=== PATIENT | male | born 1985 | race Caucasian/White ===

== ENCOUNTER 2021-10-13 17:55 | Emergency (ER) | payer OTHER, SELFPAY ==
--- NOTE | ~2021-10-13 | XR_ITS ---
XR ankle RT min 3V DATE: 10/13/2021 18:29 INDICATION: Twisted ankle at work today. Swelling. TECHNIQUE: 4 views COMPARISON: None FINDINGS: There is posterior calcaneal enthesopathy. There is mild lateral soft tissue swelling. No fracture or dislocation of the ankle or ankle mortise . IMPRESSION: Mild lateral soft tissue swelling Posterior calcaneal enthesopathy Reviewed, dictated and finalized at location A.
--- NOTE | ~2021-10-13 | XR_ITS ---
XR foot RT min 3V DATE: 10/13/2021 19:16 INDICATION: Tenderness over cuboid TECHNIQUE: 4 views COMPARISON: None FINDINGS: There is mild osteoarthritis at the first metatarsophalangeal joint. Posterior calcaneal enthesopathy. No fracture or dislocation, periosteal reaction or bone destruction. No abnormality of the cuboid bone is detected. IMPRESSION: Posterior calcaneal enthesopathy Mild osteoarthritis at first metatarsophalangeal joint Reviewed, dictated and finalized at location A.
[2021-10-13 18:05] VITALS: BP 150/92; PULSE 86; RESP 16; TEMP 37.1; O2SAT 98
--- NOTE | 2021-10-13 18:56 | ED.LOWEXIN ---
HPI - Extremity Injury (Lower) General Chief Complaint: Extremity Injury, Lower Stated Complaint: ankle injury Time Seen by Provider: 10/13/21 18:27 History of Present Illness HPI Narrative: 36-year-old previously healthy male here for evaluation of right lateral ankle pain for the past 3 hours. Patient states he was stepping off of a metal pallet that was about 3 inches of the ground when his foot got caught, and he forcefully stepped with his foot in inversion. States that he felt a pop , and the pain has developed gradually ever since. He has been walking on the foot with some pain. Denies any calf pain, paresthesias in his foot, falls, head injury. States that he has some chronic pain in his right posterior foot near the calcaneus, but this is always better after massage. Related Data Allergies Allergy/AdvReac Type Severity Reaction Status Date / Time sulfamethoxazole Allergy Unknown DOES NOT Verified 11/14/17 10:41 KNOW WAS SMALL CHILD trimethoprim Allergy Unknown DOES NOT Verified 11/14/17 10:41 KNOW WAS SMALL CHILD Review of Systems Review of Systems: Gen: Denies fevers or chills Eyes: Denies eye pain or visual change ENT: Denies congestion Respiratory: Denies shortness of breath or cough CV: Denies chest pain or palpitations GI: Denies abdominal pain nausea, emesis or diarrhea denies burning, urgency, frequency or hematuria Musculoskeletal: Reports right foot pain. Denies back pain or muscle pain Neuro: Denies numbness, tingling, weakness or focal weakness Skin: Denies rash Except as documented, all other systems reviewed and negative All systems reviewed & are unremarkable except as noted in HPI and below Exam Narrative: Gen: Alert, oriented male in no acute distress. Eyes: EOMI, no icterus Pulm: Respirations even and unlabored, symmetric thorax expansion, no audible stridor or visible cyanosis CV: Regular rate per telemetry GI: No distension, no voluntary/involuntary guarding Neuro: AOx4, moves all extremities without apparent difficulty or weakness, follows commands MSK: Right foot with some moderate swelling over lateral malleolus. Tender to palpation over cuboid bone. Full range of motion in foot with some pain with inversion. No ligamentous laxity noted. 2+ distal pulses. Brisk capillary refill. Sensation intact across entire foot. No bony tenderness along calcaneus, tibia or fibula. Normal Eckert test. Skin: No jaundice, no visible bruising, rashes, lesions or wounds on exposed skin Psych: Normal mood/affect, insight/judgement good, adequate fund of knowledge, recent/remote memory intact Course Vital Signs Vital signs: Vital Signs Temperature 98.8 F 10/13/21 18:05 Pulse Rate 86 10/13/21 18:05 Respiratory Rate 16 10/13/21 18:05 Blood Pressure 150/92 H 10/13/21 18:05 Pulse Oximetry 98 10/13/21 18:05 Temperature 98.3 F 10/13/21 19:37 Pulse Rate 74 10/13/21 19:37 Respiratory Rate 16 10/13/21 19:37 Blood Pressure 148/60 H 10/13/21 19:37 Pulse Oximetry 100 10/13/21 19:37 MDM - Extremity Injury (Lower) MDM Narrative Medical decision making narrative: 36-year-old male here for evaluation of right foot and ankle pain after landing in inversion. No ligamentous laxity noted on exam, neurovascularly intact distally. X-ray without fracture, but with evidence of Achilles tendon enthesopathy. Patient states he has had some pain in his right calcaneus for a while , this likely is not an acute finding from his injury today. Regardless, I provided him with an orthopedic follow-up if his pain persists. Discussed return precautions. Discharge Plan Discharge Clinical Impression: Ankle sprain and strain Patient Disposition: Home, Self-Care Condition: Stable Instructions: Antibiotic Form Additional Instructions: Please follow-up with your orthopedist if your pain persists past 1 week. Your x-rays did not show evidence of a fracture today, but
[2021-10-13] MEDS: ACETAMINOPHEN 325 MG TABLET 650 MG PO (18:59)
[2021-10-13] MEDS: IBUPROFEN 400 MG TABLET 800 MG PO (19:01)
[2021-10-13 19:37] VITALS: BP 148/60; PULSE 74; RESP 16; TEMP 36.8; O2SAT 100
== END 2021-10-13 19:45 | disposition home or self-care (01) ==
PROVIDERS: Emergency Provider Emergency Medicine
DX: S93.401A Sprain of unspecified ligament of right ankle, initial encounter (principal); S96.911A Strain of unspecified muscle and tendon at ankle and foot level, right foot, initial encounter; X50.9XXA Other and unspecified overexertion or strenuous movements or postures, initial encounter
CPT/HCPCS: 73610; 73630; 99283; A9270

== ENCOUNTER 2024-04-16 09:18 | Outpatient (CLI) | payer OTHER, SELFPAY ==
[2024-04-16 19:01] LABS: Basophils Percent Auto 0.6 % (0.2-1.2); Eosinophils Absolute Auto 0.1 K/mm3 (0-0.3); Eosinophils Percent Auto 1.9 % (0-4.4); Hematocrit 50.2 % (42.0-52.0); Hemoglobin 17.5 g/dL (14.0-18.0); Immature Granulocyte Absolute 0.02 K/mm3 (0.00-0.031); Immature Granulocyte Percent A 0.3 % (0-0.5); Lymphocytes Absolute Auto 2.13 K/mm3 (0.9-3.2); Lymphocytes Percent Auto 33.9 % (18.3-44.2); Mean Corpuscular HGB Conc 34.9 g/dl (32-36); Mean Corpuscular Hemoglobin 31.8 pg (26-34); Mean Corpuscular Volume 91.1 fl (80-100); Mean Platelet Volume 10.5 fl (7.4-10.4); Monocytes Absolute Auto 0.6 K/mm3 (0.1-0.6); Monocytes Percent Auto 9.7 % (2.6-8.5); Neutrophils Absolute Auto 3.4 K/mm3 (1.3-6.7); Neutrophils Percent Auto 53.6 % (45.5-73.1); Platelet Count Result 210 k/mm3 (150-375); Red Blood Count 5.51 M/mm3 (4.6-6.20); Red Cell Distribution Width 11.7 % (11.5-14.5); White Blood Count 6.3 K/mm3 (4.5-10.0)
[2024-04-16 19:23] LABS: Alanine Aminotransferase 64 U/L (6-50); Albumin Level 4.4 g/dL (3.5-5.1); Alkaline Phosphatase 59 U/L (38-126); Anion Gap 7 mmol/L (4-12); Aspartate Amino Transferase 34 U/L (17-59); Bilirubin,Total 1.1 mg/dL (0.2-1.3); Blood Urea Nitrogen 14 mg/dL (9-20); Calcium 9.3 mg/dL (8.4-10.2); Carbon Dioxide 30 mmol/L (22-30); Chloride 100 mmol/L (98-107); Cholesterol 186 mg/dL (0-200); Estimated Glomerular Filt Rate > 60; Glucose 97 mg/dL (65-110); HDL Direct 34 mg/dL; Potassium 4.5 mmol/L (3.4-5.0); Sodium 137 mmol/L (137-145); Triglycerides 79 mg/dL (<150)
[2024-04-16 19:34] LABS: LDL Cholesterol Direct 125 mg/dL
[2024-04-16 19:40] LABS: Hemoglobin A1C 5.7 % (<5.7)
[2024-04-16 19:53] LABS: Prostate Specific Antigen 0.8 ng/mL (< OR = 4.0)
== END 2024-04-16 09:19 | disposition home or self-care (01) ==
LOC: ANHGOSHLAB 09:20
PROVIDERS: PCP Clinical Nurse Specialist; Visit Provider Clinical Nurse Specialist
DX: R03.0 Elevated blood-pressure reading, without diagnosis of hypertension (principal); F41.9 Anxiety disorder, unspecified; Z80.42 Family history of malignant neoplasm of prostate; Z13.228 Encounter for screening for other metabolic disorders; Z13.220 Encounter for screening for lipoid disorders
CPT/HCPCS: 36415; 80053; 80061; 83036; 84153; 84443; 85025

== ENCOUNTER 2024-12-28 11:08 | Outpatient (CLI) | payer OTHER, SELFPAY ==
--- OUTSIDE RECORDS SUMMARY | 2024-12-28 11:42 | XMS_ITS | Continuity of Care Document ---
Author Organization [facility] Address [address] [place] [address] Phone Care Team Providers [facility] Demonstrator Name Role Phone Roscoe Mckeon DO Unavailable Unavailable Advance Directives Directive Yes / No Effective Date File Name No Information Encounters Encounter Description Practice Location Reason(s) For Visit Diagnoses Date Provider Providers [facility] [address], [place], [place], [id number], [place] tel:[phone] [facility] No Information Linda Deleon. [address] [place], [address], [place]. tel: [phone] Family History Family Member Type Diagnosis Age At Onset No Information Payers Payer name Insurance type Covered alliance party ID Authoriza tion(s) [facility] WC [id number] Social History Type Description Quantity Date Captured Comments Sex Male Smoking Status No Information Chief Complaint And Reason For Visit No Information Reason For Referral Reason For Referral No Information History Of Present Illness Encounter Date Complaint History Of Prese nt Illness No Information Functional Status Date Functional Assessmen t No Information Instructions Date Instruction Additional Infor mation No Information Assessments Type Assessment Date No Information Patient Care Teams Name Effective Dates (start - stop) Status Members No Information
--- OUTSIDE RECORDS SUMMARY | 2024-12-28 11:42 | XMS_ITS | Clinical Summary ---
Author Organization [facility] [employer] Address [address] [place] [address] Care Team Providers Care Nurse Reviewer Name Role Phone Pcp, Jhonny Goins Primary Care Provider Unav ailable Source Comments [facility],non-owned Affiliates and Associated Physician Practices is amultiple site organization consisting of ambulatory clinics and hospital sitesin [place], [place], [place] and [place]. This disclosure is being madepursuant to the Care Everywhere program and may not contain all information available regarding this patient. Last updated 18.[facility] Allergies Active Allergy Reactions Criticality Noted Date Comments Sulfamethoxazole W-Trimethoprim Unknown 10/2016 Medications * Be aware that medications may not be up to date on this document. Alwaysverify current medications with the patient. nystatin-triamc inolone (MYCOLOG) 860056-0.1 UNIT/GM-% creamIndication s:Fungal infection of skin Apply to affected area 2 times daily 60 g 08/13/2018 Active Active Problems Problem Noted Date Diagnosed Date RICHELLE (generalized anxiety disorder) 03/05/2017 Depression 03/05/2017 Resolved Problems Problem Noted Date Diagnosed Date Resolved Date NEGATIVE PAST MEDICAL HISTOR Y - SEE PROBLEM LIST 03/05/2017 Family History Relation Name Status Comments Father Alive Mother Alive Social History Tobacco Use Types Packs/Day Years Used Date Smoking Tobacco: Every Day Cigarettes Smokeless Tobacco: Never Alcohol Use Standard Drinks/Week Comments Yes 10 (1 standard drink = 0.6 oz pu re alcohol) Sex and Gender Information Value Date Recorded Sex Assigned at Not on file Legal Sex Male 8:59 AM CDT Gender Identity Not on file Sexual Orientation Not on file 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 file Not on file Not on file Last Filed Vital Signs Vital Sign Reading Time Taken Comments Blood Pressure 130/88 04/01/2017 4:13 PM CDT Pulse 78 08/13/2018 5:33 PM [employer] Temperature - - Respiratory Rate 14 08/13/2018 5:33 PM [employer] Oxygen Saturation - - Inhaled Oxygen Concentration - - Weight 129.3 kg (285 lb) 08/13/2018 5:33 PM [employer] Height 185.4 cm (6' 1) 08/13/2018 5:33 PM [employer] Body Mass Index 37.6 08/13/2018 5:33 PM [employer] Plan of Treatment Health Maintenance Due Date Last Done Comments LIPID TESTING 1983 HIV SCREENING 1998 HEPATITIS C SCREENING 03/26/2001 DTAP/TDAP/TD VACCINES (1 - Tdap) 2002 HEPATITIS B VACCINE (1 of 3 - 19+ 3-dose series) 2002 COVID-19 VACCINE ( - 2023-2 5 season) 2024 DEPRESSION SCREENING 07/01/2024 INFLUENZA VACCINE (Season Ended) 2025 ZOSTER VACCINE (1 of 2) 2033 HIB VACCINE Aged Out No longer eligi ble based on patient's age to complete this topic HPV VACCINE Aged Out No longer eligi ble based on patient's age to complete this topic MENINGOCOCCAL (Group B) VACC INE SHARED DECISION-MAKING Aged Out No longer eligibl e based on patient's age to complete this topic MENINGOCOCCAL GROUPS A/C/Y/W VACCINE Aged Out No longer eligible b ased on patient's age to complete this topic PNEUMOCOCCAL VACCINE Aged Out No long er eligible based on patient's age to complete this topic Insurance [facility] Care Teams Nurse Reviewer Relationship Specialty Start Date End Date Jhonny Vera PCP - General 01/25/23
--- OUTSIDE RECORDS SUMMARY | 2024-12-28 11:42 | XMS_ITS | Clinical Summary ---
Author Organization [facility] Address [address] [place] [id number] Care Team Providers Care Multiple Resaw Operator Name Role Phone Unavailable Primary Care Provider Unavailabl e Social History Tobacco Use Types Packs/Day Years Used Date Smoking Tobacco: Never Assessed Sex and Gender Information Value Date Recorded Sex Assigned at Not on file Legal Sex Male 6:57 PM CDT Gender Identity Not on file Sexual Orientation Not on file Plan of Treatment Health Maintenance Due Date Last Done Comments Annual Physical 1986 Hepatitis C 2001 DTaP, Tdap and Td Vaccines ( 1 - Tdap) 2002 Hepatitis B Vaccines (1 of 3 - 19+ 3-dose series) 2002 COVID-19 Vaccine (2023-2 5 season) 2024 HPV Vaccines Aged Out No longer eligi ble based on patient's age to complete this topic Meningococcal B Vaccine Aged Out No l onger eligible based on patient's age to complete this topic Meningococcal Vaccine Aged Out No narendra stephanie eligible based on patient's age to complete this topic Pneumococcal Vaccine: Pediat rics (0 to 5 Years) and At-Risk Patients (6 to 49 Years) Aged Out No longer eligible b ased on patient's age to complete this topic RSV Immunizations Under 20 Months Aged Out No longer eligible based on patient's age to complete this topic
[2024-12-28 12:15] LABS: Basophils Absolute Auto 0.1 K/mm3 (0.0-0.1); Basophils Percent Auto 0.6 % (0.2-1.2); Eosinophils Absolute Auto 0.2 K/mm3 (0-0.3); Eosinophils Percent Auto 1.7 % (0-4.4); Hematocrit 49.9 % (42.0-52.0); Hemoglobin 17.3 g/dL (14.0-18.0); Immature Granulocyte Absolute 0.04 K/mm3 (0.00-0.031); Immature Granulocyte Percent A 0.5 % (0-0.5); Lymphocytes Absolute Auto 2.72 K/mm3 (0.9-3.2); Lymphocytes Percent Auto 31.3 % (18.3-44.2); Mean Corpuscular HGB Conc 34.7 g/dl (32-36); Mean Corpuscular Hemoglobin 31.2 pg (26-34); Mean Corpuscular Volume 90.1 fl (80-100); Mean Platelet Volume 10.2 fl (7.4-10.4); Monocytes Absolute Auto 0.8 K/mm3 (0.1-0.6); Monocytes Percent Auto 8.9 % (2.6-8.5); Platelet Count Result 235 k/mm3 (150-375); Red Blood Count 5.54 M/mm3 (4.6-6.20); Red Cell Distribution Width 11.4 % (11.5-14.5); White Blood Count 8.7 K/mm3 (4.5-10.0)
[2024-12-28 12:29] LABS: Iron 111 ug/dL (49-181)
[2024-12-28 12:41] LABS: Alanine Aminotransferase 47 U/L (6-50); Albumin Level 4.4 g/dL (3.5-5.1); Alkaline Phosphatase 54 U/L (38-126); Anion Gap 9 mmol/L (4-12); Aspartate Amino Transferase 46 U/L (17-59); Bilirubin,Total 0.7 mg/dL (0.2-1.3); Blood Urea Nitrogen 14 mg/dL (9-20); Calcium 9.2 mg/dL (8.4-10.2); Carbon Dioxide 27 mmol/L (22-30); Chloride 103 mmol/L (98-107); Estimated Glomerular Filt Rate > 60; Glucose 89 mg/dL (65-110); Potassium 4.2 mmol/L (3.4-5.0); Sodium 139 mmol/L (137-145); Total Protein 7.8 g/dL (6.3-8.2)
[2024-12-28 12:46] LABS: Percent Iron Saturation 40 % (20-50)
[2024-12-28 13:04] LABS: Hepatitis B Surface Antigen Negative (Negative)
[2024-12-28 13:21] LABS: Hepatitis C Virus Antibody Negative (Negative)
== END 2024-12-28 11:09 | disposition home or self-care (01) ==
LOC: ANHGOSHLAB 11:09
PROVIDERS: PCP Clinical Nurse Specialist; Visit Provider Internal Medicine
DX: R74.01 Elevation of levels of liver transaminase levels (principal); I10 Essential (primary) hypertension; E66.01 Morbid (severe) obesity due to excess calories
CPT/HCPCS: 36415; 80053; 82728; 83540; 83550; 84443; 85025; 86803; 87340